=== PATIENT | male | born 2000 ===

== ENCOUNTER 2021-04-09 12:37 | Emergency (ER) | payer OTHER ==
[~2021-04-09] VITALS: Ht 182.9 cm; Wt 68.0 kg
[2021-04-09] MEDS ORDERED: SULFAMETHOXAZO1 EACH PO (13:15)
[2021-04-09] MEDS ORDERED: MUPIROCIN1 G1 TOP (13:16)
== END 2021-04-09 16:56 | disposition home or self-care (01) ==
LOC: ER 12:37
DX: H92.01 Otalgia, right ear (principal)